=== PATIENT | female | born 1960 | race Caucasian/White ===

== ENCOUNTER → 2017-09-18 17:10 | Outpatient (CLI) | payer BC | END | disposition home or self-care (01) | LOC: D.MAMMO 16:00 | DX: Z12.31 Encounter for screening mammogram for malignant neoplasm of breast (principal) ==

== ENCOUNTER 2019-09-19 09:00 | Outpatient (CLI) | payer BC | END 2019-09-19 10:00 | disposition home or self-care (01) | LOC: D.MAMMO 09:00 | PROVIDERS: ATTEND Family Medicine | DX: Z12.31 Encounter for screening mammogram for malignant neoplasm of breast (principal) ==

== ENCOUNTER → 2020-01-22 09:29 | Outpatient (CLI) | payer BC ==
[2019-12-26 08:00] VITALS: BMI 31.6
[~2020-01-22 09:29] MED LIST: LIPITOR10 MG PO; LISINOPRIL20 MG PO; NORVASC2.5 MG PO
== END | disposition home or self-care (01) ==
LOC: D.ECHO 09:29 → D.US 01-28 09:30
PROVIDERS: ATTEND Internal Medicine Cardiovascular Disease
DX: I25.10 Atherosclerotic heart disease of native coronary artery without angina pectoris (principal); I10 Essential (primary) hypertension; C34.90 Malignant neoplasm of unspecified part of unspecified bronchus or lung

== ENCOUNTER → 2020-01-28 08:41 | Outpatient (CLI) | payer BC ==
[2019-12-26 08:00] VITALS: BMI 31.6
== END | disposition home or self-care (01) ==
LOC: D.US 01-22 14:00 → D.RT 01-22 15:00 → D.HCCARDIO 08:41
PROVIDERS: ATTEND Internal Medicine Cardiovascular Disease
DX: I25.10 Atherosclerotic heart disease of native coronary artery without angina pectoris (principal)

== ENCOUNTER 2020-03-03 10:45 | Inpatient (IN) | payer BC ==
[~2020-03-03] VITALS: Ht 165.1 cm; Wt 90.1 kg
[2020-03-03] MEDS ORDERED: CYCLOBENZAPRINE10 MG PO (11:07)
[2020-03-03] MEDS ORDERED: ANORO ELLIPTA1 EACH INH (11:08)
[2020-03-03] MEDS ORDERED: ATIVAN0.5 MG PO (11:08)
--- NOTE | 2020-03-03 11:42 | NUR ---
d/t having abg's done in january dr galdamez gave permission to janneth rt that pt didn't need the ordered ones.
[2020-03-03 12:22] LABS: APTT 30.1 SECONDS (22.8-39.4); INR 0.93 (0.85-1.17); PROTIME 12.5 SECONDS (11.6-15.0)
[2020-03-03 12:25] LABS: HEMATOCRIT 39.4 % (36.0-48.0); MCH 33.6 pg (26.0-34.0); MCV 101.8 fL (80.0-100.0); MEAN PLATELET VOLUME 9.4 fL (7.4-10.4); RBC 3.87 10x6/uL (4.00-5.40); RDW 12.6 % (11.5-14.5)
[2020-03-03 12:37] LABS: ALBUMIN 4.2 g/dL (3.4-5.0); ALKALINE PHOSPHATASE 86 U/L (30-120); ALT (SGPT) 39 U/L (10-68); BILIRUBIN - TOTAL 0.41 mg/dL (0.2-1.3); CALC OSMOLALITY 279 mosm/kg (275-300); CALCIUM 9.4 mg/dL (8.5-10.1); CARBON DIOXIDE 30.6 mmol/L (21.0-32.0); CHLORIDE - SERUM 102 mmol/L (98-107); CREATININE - SERUM 0.6 mg/dL (0.6-1.3); GLUCOSE 98 mg/dL (74-106); POTASSIUM - SERUM 4.3 mmol/L (3.5-5.1); PROTEIN - SERUM 7.5 g/dL (6.4-8.2); SODIUM 140 mmol/L (136-145); UREA NITROGEN 16 mg/dL (7-18); eGFR NON AFRICAN AMERICAN > 90 mL/min (90-120)
[2020-03-04] VITALS (30 sets, daily range): BP systolic 94–136; BP diastolic 44–71; Ht 165.1 cm; Wt 90.1 kg
[2020-03-04 07:02] LABS: SPECIFIC GRAVITY 1.015 (1.005-1.020)
[2020-03-04 07:03] LABS: BILIRUBIN NEGATIVE (NEGATIVE); GLUCOSE NEGATIVE (NEGATIVE); KETONE NEGATIVE (NEGATIVE); NITRITE NEGATIVE (NEGATIVE); UROBILINOGEN NORMAL (NORMAL)
--- NOTE | 2020-03-04 12:23 | NUR ---
PT ARRIVED TO UNIT AT 1204 VIA BED. ON SIMPLE MASK. CT X 2 TO RIGHT LATERAL SIDE. CONNECTED TO 20CM SUCTION. INTERMITTENT AIR LEAK NOTED TO POSTERIOR CHEST TUBE. RIJ IN PLACE WITH PLASMOLYTE INFUSING 100ML/HR ON ARRIVAL. CURRENTLY INFUSING AT 30ML/HR PER ORDER. PT OPENS EYES AND FOLLOWS COMMANDS. EPIDURAL IN PLACE WITH FENTANYL AT 6ML/HR WITH 4ML BOLUS Q 15MIN. LEFT RADIAL FERNANDO IN PLACE. ZEROED ON ARRIVAL. DRISCOLL CATHETER WITH TRACIE URINE NOTED. CURRENT DRISCOLL TEMP 37.0 DEGREES CELSIUS. CURRENT O2 4L VIA NC. CONNECTED TO BRIM ROUNDER. SAFETY MEASURES IN PLACE. WILL CONTINUE TO MONITOR.
--- NOTE | 2020-03-04 15:15 | NUR ---
SPOKE WITH DR. BORJAS REGARDING SHOULDER PAIN. ORDERED TORADOL 30MG IV Q 8HR PRN X 24HRS.
--- NOTE | 2020-03-04 16:37 | NUR ---
PT CONTINUES TO RATE PAIN 8/[address] GRANT NOTIFIED. OKAY TO GIVE 2MG-4MG MORPHINE IV Q 4HR X 2 DOSES.
--- NOTE | 2020-03-04 19:15 | NUR ---
PT RECEIVED IN BED WITH HOB30. COMPLAINS OF PAIN 05/22, PT WITH EPIDURAL. PT ALERT AND ORIENTED. CHEST TUBES X2 TO LEFT SIDE TO SUCTION. DRISCOLL CATHETER TO CRITICORE PATENT WITH YELLOW URINE NOTED. WILL CONTINUE TO OBSERVE. CALL LIGHT IN REACH.
--- NOTE | 2020-03-04 21:30 | NUR ---
PT RESTING WITH EYES CLOSED AND CHEST RISING. NO S/S OF DISTRESS NOTED. EASILY AWOKEN TO VERBAL STIMULI. NO NEEDS OR CONCERNS NOTED. CALL LIGHT IN REACH. WILL CONTINUE TO OBSERVE.
--- NOTE | 2020-03-04 23:55 | NUR ---
PT WITH EYES OPEN NO NEEDS MADE KNOWN. NO S/S OF DISTRESS. WILL CONTINUE TO OBSERVE.
[2020-03-05] VITALS (24 sets, daily range): BP systolic 102–136; BP diastolic 47–74
--- NOTE | 2020-03-05 05:53 | NUR ---
KARYNA DOTY FROM ANESTHESIA PAGED AND RETURNED CALL. INFORM PT EPIDURAL AT 33ML RESERVE VOLUME,
[2020-03-05 05:54] LABS: HEMOGLOBIN 11.4 g/dL (12-16); MCH 34.7 pg (26.0-34.0); MCHC 33.5 g/dL (31.0-37.0); MCV 103.3 fL (80.0-100.0); MEAN PLATELET VOLUME 9.2 fL (7.4-10.4); RBC 3.29 10x6/uL (4.00-5.40); RDW 13.1 % (11.5-14.5)
--- NOTE | 2020-03-05 06:10 | NUR ---
ANESTHESIA APPLIED NEW BAG TO EPIDURAL AND HAS LEFT UNIT
[2020-03-05 06:22] LABS: ALKALINE PHOSPHATASE 57 U/L (30-120); ALT (SGPT) 35 U/L (10-68); BILIRUBIN - TOTAL 0.41 mg/dL (0.2-1.3); CALC OSMOLALITY 281 mosm/kg (275-300); CALCIUM 7.7 mg/dL (8.5-10.1); CARBON DIOXIDE 27.2 mmol/L (21.0-32.0); CHLORIDE - SERUM 107 mmol/L (98-107); CREATININE - SERUM 0.7 mg/dL (0.6-1.3); GLUCOSE 136 mg/dL (74-106); PROTEIN - SERUM 5.9 g/dL (6.4-8.2); SODIUM 140 mmol/L (136-145); UREA NITROGEN 16 mg/dL (7-18); eGFR NON AFRICAN AMERICAN > 90 mL/min (90-120)
[2020-03-05 06:38] LABS: WBC 7.9 10x3/uL (4.8-10.8)
[2020-03-05 06:44] LABS: ALBUMIN 2.8 g/dL (3.4-5.0)
--- NOTE | 2020-03-05 07:00 | NUR ---
RECEIVED BEDSIDE REPORT AND ASSUMED CARE OF PATIENT. VSS. PATIENT ALERT AND ORIENTED X 4, RATES PAIN 2/10, STATES EPIDURAL WORKING TO CONTROL PAIN. CM - NSR RATE OF 68 WITH NO ECTOPY NOTED. BBS - CLEAR AND EQUAL, WITH SPO2 98% ON 1 LPM VIA NC, RR 20. CHEST TUBES X 2 TO RIGHT LATERAL CHEST, TO 20 CM SUCTION WITH NO AIR LEAK DETECTED. DRESSING C/D/I. DRISCOLL CATH IN PLACE WITH TRACIE UOP NOTED. SCDS AND RANCHO HOSE IN PLACE. RIGHT SUBCLAVIAN CVL IN PLACE INFUSING PLASMOLYTE AT 30 ML/HR AND ZINACEF AT 11.4 ML/HR. EPIDURAL TO UPPER BACK INFUSING FENTANYL AT 6 ML/HR (12 MCG/HR). BOLUS Q15MIN NEED 4 ML (8MCG) ASSEMBLER BILLIARD TABLE. HEAD TO TOE ASSESSMENT COMPLETED.
--- NOTE | 2020-03-05 07:45 | NUR ---
DR. ADDISON AT ROOM UPATED AND EXAMINES PATIENT. OK TO DC ART LINE, DANGLE ON BEDSIDE AND TO START ON CLEAR LIQUID DIET, ADVANCE TOLERATED.
--- NOTE | 2020-03-05 08:40 | NUR ---
ART LINE DISCONTINUED PER ORDER. DIRECT PRESSURE HELD FOR APPROXIMATELY 4 MINUTES, NO BLEEDING OR HEMATOMA NOTED.
--- NOTE | 2020-03-05 09:24 | NUR ---
DR. DOTY AT ROOM UPDATED AND EXAMINES PATIENT. VSS. OK TO DC CVP MONITORING, DO NOT DANGLE TODAY. UPGRADE TO FULL LIQUID DIET AND ADVANCE TOLERATED.
--- NOTE | 2020-03-05 10:13 | NUR ---
PATIENTS AT ROOM UDPATED AND EXAMINES PATIENT.
--- NOTE | 2020-03-05 11:13 | NUR ---
REASSESSMENT COMPLETED. VSS.
--- NOTE | 2020-03-05 12:10 | NUR ---
PATIENT SPO2 - 97% ON 1 LPM VIA NC, REMOVED AND PLACED ON RA.
--- NOTE | 2020-03-05 13:04 | NUR ---
PATIENT ATE 80% OF LUNCH. VSS. NO NEEDS AT THIS TIME.
--- NOTE | 2020-03-05 14:00 | NUR ---
DR. ROGER AT ROOM UPDATED AND EXAMINES PATIENT. PATIENT RESTING QUIETLY VSS. NO NEEDS AT THIS TIME.
--- NOTE | 2020-03-05 15:05 | NUR ---
REASSESSMENT COMPLETED. VSS.
--- NOTE | 2020-03-05 17:37 | NUR ---
PATIENT GIVEN LATE DINNER TRAY, DINNER ADVANCED TO AHA FROM FULL LIQUID. VSS. NO NEEDS AT THIS TIME.
--- NOTE | 2020-03-05 19:00 | NUR ---
SHIFT ASSESSMENT COMPLETED. PT CARE ASSUMED. MONITORS ON AND WORKING, VITALS STABLE. PT AWAKE AND ALERT, DENIES ANY C/O PAIN OR DISCOMFORT, MONITORS ON AND WORKING, EPIDURAL SITE CDI, CT X 2 CDI, CALL LIGHT WITHIN REACH, WILL CONTINUE TO OBSERVE.
--- NOTE | 2020-03-05 23:00 | NUR ---
PT LYING IN BED RESTING, PT TURNED AND REPOSITIONED FOR COMFORT, MONITORS ON AND WORKING, CALL LIGHT WITHIN REACH, WILL CONTINUE TO OBSERVE. SEE FLOW SHEET FOR FURTHER DETAILS WILL CONTINUE TO OBSERVE.
[2020-03-06] VITALS (24 sets, daily range): BP systolic 105–132; BP diastolic 49–68
--- NOTE | 2020-03-06 05:00 | NUR ---
CHG BATH AND LINEN CHANGE, DANGLED PT, PT TOLERATED WELL. MONITORS ON AND WORKING VITALS STABLE. CALL LIGHT WITHIN REACH, WILL CONTINUE TO OBSERVE.
[2020-03-06 06:05] LABS: HEMATOCRIT 35.3 % (36.0-48.0); HEMOGLOBIN 11.5 g/dL (12-16); MCH 33.8 pg (26.0-34.0); MCHC 32.6 g/dL (31.0-37.0); MCV 103.8 fL (80.0-100.0); MEAN PLATELET VOLUME 9.3 fL (7.4-10.4); RBC 3.4 10x6/uL (4.00-5.40); WBC 9.4 10x3/uL (4.8-10.8)
[2020-03-06 06:34] LABS: ALBUMIN 2.9 g/dL (3.4-5.0); ALKALINE PHOSPHATASE 62 U/L (30-120); ALT (SGPT) 30 U/L (10-68); BILIRUBIN - TOTAL 0.53 mg/dL (0.2-1.3); CALC OSMOLALITY 270 mosm/kg (275-300); CALCIUM 8.3 mg/dL (8.5-10.1); CARBON DIOXIDE 26.1 mmol/L (21.0-32.0); CHLORIDE - SERUM 101 mmol/L (98-107); CREATININE - SERUM 0.7 mg/dL (0.6-1.3); GLUCOSE 127 mg/dL (74-106); POTASSIUM - SERUM 3.9 mmol/L (3.5-5.1); PROTEIN - SERUM 6.4 g/dL (6.4-8.2); SODIUM 135 mmol/L (136-145); eGFR NON AFRICAN AMERICAN > 90 mL/min (90-120)
[2020-03-06 06:36] LABS: UREA NITROGEN 10 mg/dL (7-18)
--- NOTE | 2020-03-06 09:28 | NUR ---
0900: DR. DAWN HERE. L FEMORAL IABP AND SHEATH DC'D. FEM STOP TO SITE. DP PULSE AUDIBLE WITH DOPPLER.
--- NOTE | 2020-03-06 12:06 | OP ---
PATIENT NAME: ARSLAN GARCIA MEDICAL RECORD: [id number] :62 LOCATION:[facility] D.CV04 ADMISSION DATE:03/04/20 SURGEON: DAMON DOTY MD DATE OF OPERATION: 03/04/2020 SURGEON: Damon Doty MD [employer] DRIVER: Dr. Pringle. ANESTHESIA: General endotracheal, Dr. Barrow and Dr. Higuera. OPERATION PERFORMED: 1. Right thoracotomy with right lower lobe dissection and resection. 2. Radical mediastinal lymphadenectomy. 3. Flexible fiberoptic bronchoscopy. PREOPERATIVE DIAGNOSIS: Non-small cell carcinoma, right lower lobe. POSTOPERATIVE DIAGNOSIS: Non-small cell carcinoma, right lower lobe. INDICATION FOR OPERATION: Non-small cell carcinoma, right lower lobe. FINDINGS OF THE OPERATION: The tumor was located in the right lower lobe in an area near the pulmonary ligament. Frozen section biopsy was poorly differentiated malignant tumor. ESTIMATED BLOOD LOSS: Less than 100 mL. SPECIMENS: Specimens were taken from the mediastinal level are 4, 7, 8, inferior pulmonary ligament times 2, chest wall pleura, pericardial implant over the phrenic nerve. DESCRIPTION OF PROCEDURE: After informed consent, adequate preoperative medication evaluation, the patient was brought to the operating room, placed on the table in the supine position. After induction of general endotracheal anesthesia and application of appropriate monitoring devices and flexible fiberoptic bronchoscopy, the patient was turned in a left lateral decubitus position. Right chest prepped and draped in sterile field, utilizing Betadine scrub, alcohol, and Betadine solution. Betadine-impregnated drape was also used. A right thoracotomy incision was made and dissection carried down the fascia. Hemostasis maintained with electrocautery. Dr. Pringle participated in the dissection and resection of the right lower lobe including dissection of the pulmonary artery, pulmonary vein and bronchus. After initial entry into the chest, an implant was seen on the inferior pulmonary ligament and this was sent for frozen section. The hilum of the right lung was then dissected anteriorly, inferiorly, and posteriorly. The inferior pulmonary ligament was mobilized. The inferior pulmonary vein was dissected and surrounded with a vessel loop. The pulmonary artery was dissected with a separate dissection of the artery to the superior segment of the right lower lobe. Attention was turned toward the bronchus and the bronchus was dissected free of surrounding structures. The lower lobe was then removed utilizing an endovascular stapler to ligate and divide the inferior pulmonary vein and the pulmonary artery. The bronchus was further dissected and a TA 34.8 stapler placed on the bronchus. The lung was tested with good inflation of the upper and middle lobe. The bronchus was then stapled and amputated. This was sent to pathology as a permanent section. A OPERATIVE REPORT [id number] LÁZAROARSLAN Allen radical mediastinal lymphadenectomy was then performed from level 4 nodes, level 7 nodes, level 8 nodes. There were no node at that level 9; however, biopsy of the mediastinal pleura was resected. Attention was turned toward the pericardial implant. This was dissected and biopsied. This could not be totally removed due to adherence to the phrenic nerve. Attention was then turned posteriorly and a pleural implant was biopsied. The chest was irrigated with copious amounts of sterile water and normal saline. There were no air leaks. The chest was again irrigated. The instrument count and sponge count were correct times 2. Two #28 chest tubes were placed, one anteriorly and superiorly, one posteriorly and inferiorly. The chest was again irrigated. Instrument count and sponge counts were correct. The chest was closed in layers utilizing #2 Vicryl pericostal sutures, #1 Vicryl on the muscle, 2-0 Vicryl on the subcutaneous tissue and skin approximated with 3-0 subcuticular Vicryl. Sterile dressings were applied. The patient was turned in a supine position. The patient underwent flexible fiberoptic bronchoscopy. It revealed small amount of mucus in the right bronchus to the upper lobe and middle lobe. This was removed. There was no bleeding or abnormality seen in the left bronchus. The patient was then awakened and transferred to CV ICU in satisfactory condition. TRANSINT:[id number] Voice Confirmation ID: [id number] DOCUMENT ID: [id number] DAMON DOTY MD at 1206 CC: [id number] DICTATION DATE: 03/04/20 1213 BRUSH HOLDER INSPECTOR: 03/04/20 1734 ADM IN [place] [id number]
[2020-03-06] MEDS ORDERED: PERCOCET 10-321 EAC1 PO (13:22)
--- NOTE | 2020-03-06 17:56 | MORECARE ---
CASE MANAGEMENT DISCHARGE SUMMARY PATIENT: ARSLAN GARCIA UNIT: [id number] ADM DATE: 03/04/20 AGE: 59 : 62 SEX: F ROOM/BED: D[facility] AUTHOR: ELVIRA,DOC PHYSICIAN: REFERRING PHYSICIAN: HEDY DOTY MD DATE OF SERVICE: 03/06/20 Discharge Plan Patient Name: ARSLAN GARCIA Facility: [facility]:[place] : 1960 Planned Disposition: Home Anticipated Discharge Date: Discharge Date: Expected LOS: Initial Reviewer: [email or web address] Initial Review Date: 03/04/2020 Generated: 03/06/20 6:55 pm Comments DCP- Discharge Planning Updated by [email or web address]: Tricia Alejandra on 03/06/20 4:[address] Patient Name: ARSLAN GARCIA Admission Status: Elective Accout number: [id number] Admission Date: 03-04-2020 : 1960 Admission Diagnosis:MALIGNANT NEOPLASM OF LOWER LOBE, RIGHT BRONCHUS OR ALEJANDRA Attending: HEDY DOTY Current LOS: 2 Anticipated DC Date: Planned Disposition: Home Primary Insurance: [employer] Discharge Planning Comments: CM spoke with patient to complete initial dc planning assessment. CM educated patient on the CM role and verbal consent given by patient to complete assessment. Patient lives at home with spouse where she is independent with her care. At discharge plans to return home. CM discussed availability of home health, rehab services, and medical equipment. Patient will have family to transport home. Patient denies any known discharge needs at this time. CM will continue to follow and will assist as needed with dc plans/needs. Greige Goods Examiner: Tricia Alejandra DCPIA - Discharge Planning Initial Assessment Updated by [email or web address]: Tricia Alejandra on 03/06/20 5:54 pm * Is the patient Alert and Oriented? Yes * How many steps to enter\exit or inside your home? * PCP [facility] * Pharmacy [facility] * Preadmission Environment Home with Family * ADLs Independent * Equipment None * List name and contact numbers for known caregivers / representatives who currently or will assist patient after discharge: PH[place]EN[place] GARCIA - SPOUSE - [phone] * Verbal permission to speak to the caregivers and representatives has been obtained from the patient. Yes * Community resources currently utilized None * Additional services required to return to the preadmission environment? No * Can the patient safely return to the preadmission environment? Yes * Has this patient been hospitalized within the prior 30 days at any hospital? No Patient Name: ARSLAN GARCIA Page [id number] at 1756 All edits/amendments must be made on the electronic document DICTATION DATE: 03/06/201754 HOUSEHOLD ASSISTANT: BELEM 03/06/201754 RPT#: [id number] DC DATE: STATUS: ADM IN [address] [place] [address] END OF REPORT
--- NOTE | 2020-03-06 18:14 | NUR ---
1715: UP TO BATHROOM WITH MINIMAL ASSISTANCE. BATHED HIMSELF. DENIED ANY SHORTNESS OF BREATH OR PAIN WITH ACTIVITY.
--- NOTE | 2020-03-06 19:00 | NUR ---
REPORT RECEIVED. RECEIVED PATIENT SITTING UP IN BED. AWAKE ALERT AND ORIENTED X 4. ASSESSMENT COMPLETED PER FLOW SHEET WITH NO ACUTE DISTRESS OBSERVED. MONITORS CONNECTED TO PATIENT WTIH ALARMS SET. VSS. EPIDURAL CATH INTACT, INFUSING PER ORDER. RT CHEST TUBES X 2 INTACT/PATENT/ SECURE DRAINING SEROSANGUINEOUS FLUID INTO COLLECTION CHAMBERS WITH NO AIR LEAK OBSERVED, TO WATER SEAL. CALL LIGHT IN REACH AND ABLE TO UTILIZE TO MAKE NEEDS KNOWN.
--- NOTE | 2020-03-06 21:00 | NUR ---
AWAKE AND ALERT. VSS. PM MEDS TAKEN WITHOUT DIFF. CALL LIGHT IN REACH
--- NOTE | 2020-03-06 23:00 | NUR ---
RESTING WITH EYES CLOSED, EASILY ROUSED AND ALERT. REASSESSMENT COMPLETED PER FLOW SHEET WITH NO ACUTE DISTRESS OBSERVED. VSS. CALL LIGHT IN REACH
[2020-03-07] VITALS (24 sets, daily range): BP systolic 101–137; BP diastolic 50–75
--- NOTE | 2020-03-07 01:00 | NUR ---
RESTING WITH EYES CLOSED. VSS. CALL LIGHT IN REACH
--- NOTE | 2020-03-07 03:00 | NUR ---
REASSESSMENT COMPLETED PER FLOW SHEET WITH NO ACUTE DISTRESS OBSERVED. VSS. CALL LIGHT IN REACH
--- NOTE | 2020-03-07 05:00 | NUR ---
RESTING WITH EYES CLOSED, EASILY ROUSED AND ALERT. VSS. CALL LIGHT IN REACH
[2020-03-07 05:55] LABS: HEMATOCRIT 33.1 % (36.0-48.0); HEMOGLOBIN 10.7 g/dL (12-16); MCHC 32.3 g/dL (31.0-37.0); MCV 102.2 fL (80.0-100.0); MEAN PLATELET VOLUME 9.3 fL (7.4-10.4); RBC 3.24 10x6/uL (4.00-5.40); RDW 12.8 % (11.5-14.5); WBC 6.3 10x3/uL (4.8-10.8)
[2020-03-07 06:13] LABS: ALBUMIN 2.5 g/dL (3.4-5.0); ALKALINE PHOSPHATASE 62 U/L (30-120); ALT (SGPT) 24 U/L (10-68); BILIRUBIN - TOTAL 0.47 mg/dL (0.2-1.3); CALC OSMOLALITY 271 mosm/kg (275-300); CALCIUM 8.3 mg/dL (8.5-10.1); CARBON DIOXIDE 28.6 mmol/L (21.0-32.0); CHLORIDE - SERUM 102 mmol/L (98-107); CREATININE - SERUM 0.6 mg/dL (0.6-1.3); GLUCOSE 112 mg/dL (74-106); POTASSIUM - SERUM 3.8 mmol/L (3.5-5.1); PROTEIN - SERUM 6.1 g/dL (6.4-8.2); SODIUM 136 mmol/L (136-145); UREA NITROGEN 11 mg/dL (7-18); eGFR NON AFRICAN AMERICAN > 90 mL/min (90-120)
--- NOTE | 2020-03-07 09:46 | NUR ---
AMBULATORY IN ROOM. NO DISTRESS NOTED. SR NOTED ON ANESTHESIOLOGY TECHNOLOGIST.
--- NOTE | 2020-03-07 11:53 | NUR ---
1145: R LATERAL CHEST TUBES DC'D BY DR. ADDISON. 1150: EPIDURAL DC'D BY .
[2020-03-07 13:01] LABS: % SATURATION 18 % (15-55); IRON 34 ug/dl (35-150); TOTAL IRON BIND CAPACITY 187 ug/dl (260-445); UNSAT IRON BIND CAPACITY 153 ug/dl (150-375)
--- NOTE | 2020-03-07 15:00 | NUR ---
DRISCOLL CATH DC'D. UP IN CHAIR AT BEDSIDE. TOLERATED FAIR. STATES PAIN IS SEVERE MORPHINE 2 MG IV GIVEN. MEDS EFFECTIVE.
--- NOTE | 2020-03-07 16:44 | NUR ---
TOLERATING UP IN CHAIR WELL. DINNER TRAY SERVED.
--- NOTE | 2020-03-07 17:48 | NUR ---
AMBULATED TO BATHROOM, UNABLE TO VOID AT THIS TIME. UP IN CHAIR AT BEDSIDE WATCHING TV. NO DISTRESS. DRESSING RIGHT BACK AND RIGHT SIDE CLEAN AND DRY.
--- NOTE | 2020-03-07 19:09 | NUR ---
REPORT RECEIVED. RECEIVED PATIENT UP IN BEDSIDE CHAIR. AWAKE ALERT AND ORIENTED X 4. ASSESSMENT COMPLETED PER FLOW SHEET WITH NO ACUTE DISTRESS OBSERVED. DRSGS DRY AND INTACT. MONITORS CONNECTED TO PATIENT WITH ALARMS SET. VSS. COMPLAINS OF INCISIONAL PAIN 10/10 ON PAIN SCALE, REFUSES MORPHINE AT THIS TIME DUE TO MADE HER " BP DROP , FEEL DIZZY AND NAUSEOUS" WOULD PREFER TO USE PERCOCET. PRN OXYCODONE ADMIN AT THIS TIME, WILL CONTINUE TO MONITOR. CALL LIGHT IN REACH AND ABLE TO UTILIZE TO MAKE NEEDS KNOWN.
--- NOTE | 2020-03-07 21:00 | NUR ---
AWAKE AND ALERT. AMBULATED TO BATHROOM WITH SBA X 1. GAIT STEADY. VOIDED AND BACK TO BEDSIDE CHAIR. GARTH WELL
--- NOTE | 2020-03-07 21:25 | NUR ---
PATIENT COMPLAINS OF INCISIONAL PAIN 10/10 ON PAIN SCALE. REQUESTS PRN MORPHINE. PRN MORPHINE ADMIN SLOW IVP. PATIENT GARTH WELL WITH NO COMPLAINT. BP 129/67. WILL CONTINUE TO MONITOR.
--- NOTE | 2020-03-07 21:45 | NUR ---
PATIENT REPORTS "SOME" PAIN RELIEF. RATES 7/10 ON PAIN SCALE. BP 120/68. NO ADVERSE REACTIONS TO MORPHINE ADMIN OBSERVED/REPORTED.
--- NOTE | 2020-03-07 23:00 | NUR ---
ASSISTED INTO BED. GARTH WELL. REASSESSMENT COMPLETED PER FLOW SHEET WITH NO ACUTE DISTRESS OBSERVED. VSS. CALL LIGHT IN REACH.
[2020-03-08] VITALS (8 sets, daily range): BP systolic 102–138; BP diastolic 48–75
--- NOTE | 2020-03-08 01:00 | NUR ---
AWAKE AND ALERT. AMBULATED TO BATHROOM WITH SBA X 1, GAIT STEADY. VOIDED. AMBULATED BACK TO BED. GARTH WELL. VSS
--- NOTE | 2020-03-08 03:00 | NUR ---
RESTING WITH EYES CLOSED, EASILY ROUSED AND ALERT. REASSESSMENT COMPLETED PER FLOW SHEET WITH NO ACUTE DISTRESS OBSERVED. VSS. CALL LIGHT IN REACH
--- NOTE | 2020-03-08 08:55 | NUR ---
0845: DISCHARGE INSTRUCTIONS REVIEWED. 0850: R [facility] DC'D. MANUAL PRESSURE HELD X 3 MIN. SITE DRESSED WITH 2X2 AND TEGADERM. 0903: DISCHARGED HOME WITH . ESCORTED TO ER ENTRANCE VIA WHEELCHAIR.
--- NOTE | 2020-03-09 09:12 | MORECARE ---
CASE MANAGEMENT DISCHARGE SUMMARY PATIENT: ARSLAN GARCIA UNIT: [id number] ADM DATE: 03/04/20 AGE: 59 : 62 SEX: F ROOM/BED: D[facility] AUTHOR: ELVIRA,DOC PHYSICIAN: REFERRING PHYSICIAN: HEDY DOTY MD DATE OF SERVICE: 03/09/20 Discharge Plan Patient Name: ARSLAN GARCIA Facility: [facility]:[place] : 1960 Planned Disposition: Home Anticipated Discharge Date: Discharge Date: 03/08/2020 Expected LOS: Initial Reviewer: [email or web address] Initial Review Date: 03/04/2020 Generated: 03/09/20 10:11 am Comments DCP- Discharge Planning Updated by [email or web address]: Tricia Alejandra on 03/06/20 4:[address] Patient Name: ARSLAN GARCIA Admission Status: Elective Accout number: [id number] Admission Date: 03-04-2020 : 1960 Admission Diagnosis:MALIGNANT NEOPLASM OF LOWER LOBE, RIGHT BRONCHUS OR ALEJANDRA Attending: HEDY DOTY Current LOS: 2 Anticipated DC Date: Planned Disposition: Home Primary Insurance: [employer] Discharge Planning Comments: CM spoke with patient to complete initial dc planning assessment. CM educated patient on the CM role and verbal consent given by patient to complete assessment. Patient lives at home with spouse where she is independent with her care. At discharge plans to return home. CM discussed availability of home health, rehab services, and medical equipment. Patient will have family to transport home. Patient denies any known discharge needs at this time. CM will continue to follow and will assist as needed with dc plans/needs. Computer Compositor: Tricia Alejandra DCPIA - Discharge Planning Initial Assessment Updated by [email or web address]: Tricia Alejandra on 03/06/20 5:54 pm * Is the patient Alert and Oriented? Yes * How many steps to enter\exit or inside your home? * PCP [facility] * Pharmacy [facility] * Preadmission Environment Home with Family * ADLs Independent * Equipment None * List name and contact numbers for known caregivers / representatives who currently or will assist patient after discharge: [place]EN[place] GARCIA - SPOUSE - [phone] * Verbal permission to speak to the caregivers and representatives has been obtained from the patient. Yes * Community resources currently utilized None * Additional services required to return to the preadmission environment? No * Can the patient safely return to the preadmission environment? Yes * Has this patient been hospitalized within the prior 30 days at any hospital? No Last DP export: 03/06/20 4:56 p Patient Name: ARSLAN GARCIA Page 12556 at 0912 All edits/amendments must be made on the electronic document DICTATION DATE: 03/09/[address] RO[address] BUILDER: BELEM 03/09/20910 RPT#: [id number] DC DATE:03/08/20 STATUS: DIS IN [facility] [address] [place] [address] END OF REPORT
== END 2020-03-08 09:03 | disposition home or self-care (01) | DRG 165 ==
LOC: D.SDCHOLD 03-04 05:57 → D.CVICU 03-04 05:57 → D.M2 03-04 07:30 → D.CVICU 03-04 11:46
PROVIDERS: Internal Medicine Hematology & Oncology; ADMIT Internal Medicine Cardiovascular Disease; ATTEND Internal Medicine Cardiovascular Disease
PROC: 0BTF0ZZ Resection of Right Lower Lung Lobe, Open Approach (ICD-10-PCS; principal; 2020-03-04 09:00)
PROC: 07T70ZZ Resection of Thorax Lymphatic, Open Approach (ICD-10-PCS; 2020-03-04 09:00)
PROC: 0BJ08ZZ Inspection of Tracheobronchial Tree, Via Natural or Artificial Opening Endoscopic (ICD-10-PCS; 2020-03-04 09:00)
DX: C34.31 Malignant neoplasm of lower lobe, right bronchus or lung (principal); I10 Essential (primary) hypertension; J44.9 Chronic obstructive pulmonary disease, unspecified; E78.5 Hyperlipidemia, unspecified; Z87.891 Personal history of nicotine dependence; R06.89 Other abnormalities of breathing

== ENCOUNTER → 2020-03-25 09:55 | Outpatient (CLI) | payer BC ==
[2020-03-04 15:53] VITALS: BMI 31.7
[~2020-03-25 09:55] MED LIST changes: +ANORO ELLIPTA1 EACH INH; +ATIVAN0.5 MG PO; +CYCLOBENZAPRINE10 MG PO; +PERCOCET 10-321 EAC1 PO
== END | disposition home or self-care (01) ==
LOC: D.RAD 09:55
PROVIDERS: ATTEND Internal Medicine Cardiovascular Disease
DX: Z98.890 Other specified postprocedural states (principal)

== ENCOUNTER 2020-04-16 05:11 | Day surgery (SDC) | payer BC ==
[~2020-04-16] VITALS: Ht 162.6 cm; Wt 88.0 kg
[2020-04-16 06:44] VITALS: BP 122/66; Ht 162.6 cm; Wt 88.0 kg
[2020-04-16] MEDS ORDERED: HYDROCODON-ACE1 EAC7 PO (09:04)
== END 2020-04-16 10:55 | disposition home or self-care (01) ==
LOC: D.OPS 05:11 → D.PAN 07:30 → D.OPS 07:30 → D.PAN 08:00 → D.OPS 10:55
PROVIDERS: ATTEND Surgery
DX: C34.90 Malignant neoplasm of unspecified part of unspecified bronchus or lung (principal); Z72.0 Tobacco use

== ENCOUNTER → 2020-08-21 08:36 | Outpatient (CLI) | payer BC ==
[2020-04-16 06:44] VITALS: BMI 33.3
[~2020-08-21 08:36] MED LIST changes: +HYDROCODON-ACE1 EAC7 PO
== END | disposition home or self-care (01) ==
LOC: D.CT 08:36 → D.MRI 09:00
PROVIDERS: ATTEND Internal Medicine Hematology & Oncology
DX: C34.31 Malignant neoplasm of lower lobe, right bronchus or lung (principal)